=== PATIENT | female | born 1995 | race Caucasian/White ===

== ENCOUNTER → 2017-05-30 | Outpatient (CLI) | payer BC ==
--- NOTE | 2017-05-30 11:38 | RAD ---
Indication chronic neck pain. AP and lateral views of the cervical spine were obtained as well as an odontoid view. C1 through the upper thoracic spine are identified. Vertebral height alignment and disc spaces appear normal. No acute finding is seen. There are no significant degenerative changes apparent on plain films. The prevertebral soft tissues appear unremarkable. IMPRESSION: Normal plain film examination of the cervical spine
--- NOTE | 2017-05-30 11:44 | RAD ---
Indication abnormal thyroid exam. Grayscale imaging targeted to the thyroid was performed. No prior imaging of the thyroid is available. The right lobe of the thyroid measures 4.3 x 1.3 x 1.8 cm. The right lobe has a heterogeneous appearance but no dominant nodule is seen. The isthmus appears similar. The left lobe of the thyroid too has a heterogeneous appearance but no dominant nodule is seen. The left lobe measures 4.2 x 1.5 x 1.6 cm. IMPRESSION: Heterogeneous appearing thyroid. No dominant nodule seen in either lobe of the thyroid
== END | disposition home or self-care (01) ==
LOC: US 09:53
PROVIDERS: ATTEND Internal Medicine
DX: M54.2 Cervicalgia (principal); R94.6 Abnormal results of thyroid function studies
CPT/HCPCS: 72040; 76536

== ENCOUNTER → 2017-09-16 | Outpatient (CLI) | payer BC | END | disposition home or self-care (01) | LOC: RAD 12:30 | DX: A15.8 Other respiratory tuberculosis (principal); R91.8 Other nonspecific abnormal finding of lung field | CPT/HCPCS: 71046 ==